=== PATIENT | male | born 1960 | race Caucasian/White ===

== ENCOUNTER 2025-03-22 09:28 | Outpatient (CLI) | payer BC ==
[2025-03-22 10:04] LABS: #Basophils 0.04 10x3/uL (0.0-0.2); #Eosinophils 0.31 10x3/uL (0.0-0.7); #Monocytes 0.51 10x3/uL (0.11-0.59); #Neutrophils 2.43 10x3/uL (1.40-6.50); %Basophils 0.9 % (0.0-1.0); %Eosinophils 7.2 % (0.0-10.0); %Lymphocytes 23.1 % (21.0-51.0); %Monocytes 11.9 % (0.0-10.0); %Neutrophils 56.7 % (42.0-75.0); Hematocrit 45.5 % (42.0-52.0); Hemoglobin 15.8 g/dL (14.0-18.0); Mean Corpuscular Hemoglobin 31.7 pg (27.0-31.0); Mean Corpuscular Volume 91.2 fL (78.0-98.0); Platelet Count 239 10x3/uL (130-400); Red Blood Cell (RBC) Count 4.99 mill/uL (4.70-6.10); White Blood Cell (WBC) Count 4.29 10x3/uL (4.8-10.8)
== END 2025-03-22 09:29 | disposition home or self-care (01) ==
LOC: LABBT 09:28
PROVIDERS: ATTEND Orthopaedic Surgery
DX: Z01.818 Encounter for other preprocedural examination (principal); M24.541 Contracture, right hand
CPT/HCPCS: 85025; 93005; 93010

== ENCOUNTER 2025-03-26 06:11 | Day surgery (SDC) | payer BC ==
[2025-03-22 09:37] VITALS: BMI 29.2
[2025-03-26] MEDS ORDERED: CEFAZOLIN 2 GM VIAL ONE (06:54)
[2025-03-26] MEDS ORDERED: Collagenase Clostridium Hist. 0.9 MG VIAL IJ SCH (07:30)
== END 2025-03-26 08:15 | disposition home or self-care (01) ==
LOC: SDC 06:11
PROVIDERS: ATTEND Orthopaedic Surgery
PROC: 3E013TZ Introduction of Destructive Agent into Subcutaneous Tissue, Percutaneous Approach (ICD-10-PCS; principal; 2025-03-26)
DX: M72.0 Palmar fascial fibromatosis [Dupuytren] (principal); I10 Essential (primary) hypertension; Z96.611 Presence of right artificial shoulder joint; Z79.899 Other long term (current) drug therapy
CPT/HCPCS: J0775

== ENCOUNTER 2025-05-21 06:04 | Day surgery (SDC) | payer BC ==
[2025-05-18 09:53] VITALS: BMI 28.5
[2025-05-21] MEDS ORDERED: PROPOFOL 40 ML ONE (06:42)
[2025-05-21] MEDS ORDERED: Lidocaine 1% PF 5 ML VIAL ONE (06:44)
[2025-05-21] MEDS ORDERED: CEFAZOLIN 2 GM VIAL ONE (07:00)
[2025-05-21] MEDS ORDERED: PROPOFOL 20 ML ONE (07:24)
[2025-05-21] MEDS ORDERED: Collagenase Clostridium Hist. 0.9 MG VIAL IJ SCH (07:45)
== END 2025-05-21 08:35 | disposition home or self-care (01) ==
LOC: SDC 06:04
PROVIDERS: ATTEND Orthopaedic Surgery
PROC: 3E013TZ Introduction of Destructive Agent into Subcutaneous Tissue, Percutaneous Approach (ICD-10-PCS; principal; 2025-05-21)
DX: M72.0 Palmar fascial fibromatosis [Dupuytren] (principal); I10 Essential (primary) hypertension; E78.5 Hyperlipidemia, unspecified
CPT/HCPCS: J0665; J0775; J2250; J2704; J3010